=== PATIENT | female | born 1980 | race Caucasian/White ===

== ENCOUNTER 2018-06-08 07:26 | Emergency (ER) | payer BC | END 2018-06-08 07:43 | disposition home or self-care (01) | LOC: SCSER 07:26 | DX: H01.9 Unspecified inflammation of eyelid (principal); F17.210 Nicotine dependence, cigarettes, uncomplicated | CPT/HCPCS: 99282 ==

== ENCOUNTER 2018-09-04 22:14 | Emergency (ER) | payer BC ==
[2018-09-04] MEDS ORDERED: Fluorescein Opthalmic Strip ONE (22:52)
== END 2018-09-04 23:18 | disposition home or self-care (01) ==
LOC: SCSER 22:14
DX: H00.14 Chalazion left upper eyelid (principal); F17.210 Nicotine dependence, cigarettes, uncomplicated
CPT/HCPCS: 99281

== ENCOUNTER 2020-03-17 07:55 | Outpatient (CLI) | payer OTHER ==
--- NOTE | 2020-03-18 20:53 | EKG ---
Test Reason : Blood Pressure : / mmHG Vent. Rate : 077 BPM Atrial Rate : 077 BPM P-R Int : 142 ms QRS Dur : 080 ms QT Int : 348 ms P-R-T Axes : 060 032 053 degrees QTc Int : 393 ms Normal sinus rhythm Normal ECG No previous ECGs available Confirmed by Johnie CESAR ([id number]) on 03/18/2020 8:53:15 PM Referred By: DIANA Confirmed By:Johnie CESAR
== END 2020-03-17 07:56 | disposition home or self-care (01) ==
LOC: LABBT 07:55
PROVIDERS: ATTEND Surgery
DX: Z01.810 Encounter for preprocedural cardiovascular examination (principal); M51.16 Intervertebral disc disorders with radiculopathy, lumbar region
CPT/HCPCS: 93005; 93010